=== PATIENT | female | born 1985 | race Caucasian/White ===

== ENCOUNTER 2017-03-01 09:54 | Outpatient (CLI) | payer OTHER ==
--- NOTE | 2017-03-01 11:39 | XRAY Report ---
THREE-VIEW RIGHT SHOULDER: 03/01/2017 CLINICAL INDICATION: Pain. FINDINGS: Internal and external rotational views and a scapular Y view of the shoulder demonstrate n o evidence of fracture or dislocation. The joint spaces are preserved. No radiopaque foreign body i s seen in the soft tissues. IMPRESSION: NORMAL RIGHT SHOULDER. JOB #: [id number] EXT JOB #:[id number]
== END 2017-03-01 09:55 | disposition home or self-care (01) ==
LOC: DI 09:54
PROVIDERS: ATTEND Nurse Practitioner Family
DX: M25.511 Pain in right shoulder (principal)

== ENCOUNTER 2018-08-30 11:33 | Outpatient (CLI) | payer OTHER ==
--- NOTE | 2018-08-30 15:13 | XRAY Report ---
Reason: MULTIPLE JOINT PAIN Procedure Date: 08/30/2018 Accession Number: [id number] / [id number] Procedure: XR - Hand 3 View BILAT CPT Code: FULL RESULT: EXAMS: 1. RIGHT HAND RADIOGRAPHY 2. LEFT HAND RADIOGRAPHY EXAM DATE: 08/30/2018 11:45 AM. CLINICAL HISTORY: Multiple joint pain. Positive rheumatologic markers. COMPARISON: None. TECHNIQUE: 3 views each hand. FINDINGS: Right: Bones: Normal bone density. No fractures, bone lesions or periarticular erosions. Joints: Normal. No subluxations. Soft Tissues: Normal. No soft tissue swelling. Left: Bones: Normal bone density. No fractures, bone lesions or periarticular erosions. Joints: Normal. No subluxations. Soft Tissues: Normal. No soft tissue swelling. IMPRESSION: Normal bilateral hand radiography. No radiographic evidence of productive or erosive arthropathy. RADIA
== END 2018-08-30 11:34 | disposition home or self-care (01) ==
LOC: DI 11:33
PROVIDERS: ATTEND Family Medicine
DX: M25.50 Pain in unspecified joint (principal)

== ENCOUNTER 2021-02-01 02:26 | Emergency (ER) | payer OTHER ==
[2021-02-01 02:48] LABS: BILIRUBIN,URINE NEGATIVE (NEGATIVE); CLARITY,URINE SL. CLOUDY (CLEAR); GLUCOSE, URINE (UA) NEGATIVE (NEGATIVE); HCG UR QUAL NEGATIVE; KETONES,URINE (UA) NEGATIVE (NEGATIVE); LEUKOCYTE ESTERASE, URINE SMALL (NEGATIVE); NITRITE,URINE POSITIVE (NEGATIVE); OCCULT BLOOD,URINE LARGE (NEGATIVE); PH,URINE 5.5 PH (5.0-7.5); PROTEIN,URINE 100 mg/dL (NEGATIVE); UROBILINOGEN,URINE 0.2 (NORMAL) E.U./dL (NORMAL)
[2021-02-01 02:49] LABS: BACTERIA,URINE Few /HPF (None Seen); SQUAMOUS EPITHELIAL CELL,UR RARE Squamous (<= Few)
[2021-02-01 02:51] LABS: BASOPHILS # (AUTO) 0.1 10^3/uL (0.0-0.1); BASOPHILS % (AUTO) 0.7 %; EOSINOPHILS # (AUTO) 0.3 10^3/uL (0.0-0.7); EOSINOPHILS % (AUTO) 3.1 %; HCT - HEMATOCRIT 41.4 % (37.0-47.0); HGB - HEMOGLOBIN 13.4 g/dL (12.0-16.0); LYMPHOCYTES # (AUTO) 1.8 10^3/uL (1.5-3.5); MEAN CORPUSCULAR HEMOGLOBIN 28.2 pg (27.0-31.0); MEAN CORPUSCULAR HGB CONC 32.4 g/dL (32.0-36.0); MEAN CORPUSCULAR VOLUME 87.2 fL (81.0-99.0); MEAN PLATELET VOLUME 10.1 fL (7.9-10.8); MONOCYTES # (AUTO) 0.7 10^3/uL (0.0-1.0); MONOCYTES % (AUTO) 7.9 %; NEUTROPHILS # (AUTO) 6.2 10^3/uL (1.5-6.6); NEUTROPHILS % (AUTO) 68.1 %; PLT - PLATELET COUNT 298 10^3/uL (130-450); RED BLOOD COUNT 4.75 10^6/uL (4.20-5.40); RED CELL DISTRIBUTION WIDTH 13.4 % (12.0-15.0); WHITE BLOOD COUNT 9.1 x10^3/uL (4.8-10.8)
[2021-02-01 03:04] LABS: ALBUMIN 4.5 g/dL (3.2-5.5); ALBUMIN/GLOBULIN RATIO 1.4 (1.0-2.2); BILIRUBIN,TOTAL 0.6 mg/dL (0.2-1.0); CALCIUM 8.8 mg/dL (8.5-10.3); CREATININE 0.8 mg/dL (0.4-1.0); POTASSIUM 3.3 mmol/L (3.5-5.0); TOTAL PROTEIN 7.8 g/dL (6.7-8.2)
--- NOTE | 2021-02-01 03:04 | ED Physician Documentation ---
PD HPI ABD PAIN - Stated complaint Stated Complaint: R SIDE PX - Chief complaint Chief Complaint: Abd Pain - History obtained from History obtained from: Patient - History of Present Illness Timing - onset: How many hours ago (2-3 hours ago) Timing - details: Abrupt onset, Waxing and waning Pain level now: 6 Quality: Pain Location: Other (right flank) Improved by: Other (no ameliorating factors) Worsened by: Other (no exacerbating factors) Associated symptoms: Nausea, Vomiting. 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 Denies h/o similar symptoms. Review of Systems Constitutional: reports: Reviewed and negative Cardiac: reports: Reviewed and negative Respiratory: reports: Reviewed and negative GI: reports: Abdominal Pain (right flank pain, some mild component of RUQ and right paralumbar discomfort, as well), Nausea, Vomiting. 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 - Present Medications Home Medications: Ambulatory Orders Medication Instructions Recorded Confirmed Ciprofloxacin HCl [Cipro] 500 mg PO BID #14 tablet 02/01/21 HYDROcod/ACETAM 5/325 [[place] 5/325] 1 - 2 tablet PO Q6H PRN #14 tablet 02/01/21 Ondansetron Odt [Zofran] 4 mg TL Q6H PRN #14 tablet 02/01/21 - Allergies Allergies/Adverse Reactions: Allergies Allergy/AdvReac Type Severity Reaction Status Date / Time No Known Drug Allergies Allergy Verified 02/01/21 02:35 PD ED PE NORMAL - Vitals Vital signs reviewed: Yes - General General: Alert and oriented X 3, Well developed/nourished, Other (appears to be in mild/moderate painful distress) - HEENT HEENT: Moist mucous membranes - Neck Neck: Supple, no meningeal sign - Cardiac Cardiac: RRR, No murmur - Respiratory Respiratory: No respiratory distress, Clear bilaterally - Abdomen Abdomen: Soft, Non distended, Other (mild TTP RUQ without rebound or guarding) - Back Back: Other (mild right CVAT) - Derm Derm: Normal color, Warm and dry Results - Vitals Vitals: Vital Signs - 24 hr 02/01/21 02/01/21 03:32 05:23 Temperature 36.6 C Heart Rate 82 84 Respiratory 18 16 Rate Blood Pressure 134/83 H 128/90 H O2 Saturation 97 97 Oxygen O2 Source Room air - Labs Labs: Laboratory Tests 02/01/21 02/01/21 02/01/21 02:30 02:45 02:45 WBC 9.1 RBC 4.75 Hgb 13.4 Hct 41.4 MCV 87.2 MCH 28.2 MCHC 32.4 RDW 13.4 Plt Count 298 MPV 10.1 Neut # (Auto) 6.2 Lymph # (Auto) 1.8 [place] # (Auto) 0.7 Eos # (Auto) 0.3 Baso # (Auto) 0.1 Absolute Nucleated RBC 0.00 Nucleated RBC % 0.0 Sodium 141 Potassium 3.3 L Chloride 107 Carbon Dioxide 24 Anion Gap 10.0 BUN 15 Creatinine 0.8 Estimated GFR (MDRD) 82 L Glucose 114 H Calcium 8.8 Total Bilirubin 0.6 AST 17 ALT 15 Alkaline Phosphatase 88 Total Protein 7.8 Albumin 4.5 Globulin 3.3 Albumin/Globulin Ratio 1.4 Lipase 30 Urine Color YELLOW Urine Clarity SL. CLOUDY Urine pH 5.5 Ur Specific [place] >=1.030 H Urine Protein 100 H Urine Glucose (UA) NEGATIVE Urine Ketones NEGATIVE Urine Occult Blood LARGE H Urine Nitrite POSITIVE H Urine Bilirubin NEGATIVE Urine Urobilinogen 0.2 (NORMAL) Ur Leukocyte Esterase SMALL H Urine RBC 6-10 H Urine WBC 11-25 H Ur Squamous Epith Cells RARE Squamous Urine Bacteria Few Ur Microscopic Review INDICATED Urine Culture Comments INDICATED Urine HCG, Qual NEGATIVE - Rads (name of study) CT A/P with IV contrast Radiology: Prelim report reviewed, See rad report PD MEDICAL DECISION MAKING - ED course Complexity details: reviewed results, re-evaluated patient, considered differential, d/w patient ED course: UA s/o UTI and CT A/P suggests mild focal inflammation right urinary collecting system, possibly representing pyelitis. She is afebrile and her blood test results are reassuring. Her pain is well controlled with toradol IV and 0.5mg IV dilaudid. She is given rocephin IV prior to d/c and rx for cipro, zofran, and cipro are transmitted to her pharmacy I am prescribing a short course of short-acting opioid pain medication for this patient. I have reviewed the patients HOUSING LIAISON and no concerning findings were noted. I have discussed that the opioids are for short term therapy only, and will not be refilled from the ED. Departure - Departure Disposition: 01 Home, Self Care Clinical Impression: Acute pyelitis Condition: Good Instructions: ED Kidney Infec Female Follow-Up: Kike Foster MD [Primary Care Provider] - (3-5 days if symptoms not improving) Prescriptions: Ciprofloxacin HCl [Cipro] 500 mg PO BID #14 tablet HYDROcod/ACETAM 5/325 [[place] 5/325] 1 - 2 tablet PO Q6H PRN #14 tablet PRN Reason: Pain Ondansetron Odt [Zofran] 4 mg TL Q6H PRN #14 tablet PRN Reason: Nausea / Vomiting Comments: Prescriptions for hydrocodone/acetaminophen (pain medication), cipro (antib iotic), and zofran (antinauseant) have been electronically submitted to [facility] in [place] I am prescribing a short course of narcotic pain medication for you. These are potentially dangerous and addictive medications that should be used carefully. These medications may constipate you. Take an ydla-krm-saycedq stool softener (docusate) twice daily with plenty of water while taking these medications. If you go 24 hours without a bowel movement, take [id number] miralax, per package instructions. Do not drink or drive while taking these medications. If you received narcotic or sedating medications while in the emergency department, do not drive for 24 hours. Store this medication in a safe, secure place and out of reach of children. It is a violation of federal law to give or sell this medication to another person or to use in a manner other than prescribed. The ED will not refill narcotic prescriptions, including prescriptions lost or stolen. To dispose of unwanted medications: 1. [facility] at [address] in [place] has a medication drop box. They accept prescription medications (in pill form) Tuesday through Tuesday 9:00 a.m. to 5:00 p.m. 2. [facility] accepts prescription medications (in pill form only) for disposal year round. Call for more information. 3. Contact the [facility] for the next [facility] sponsored prescription drug collection event. , [phone], or [phone]; Discharge Date/Time: 02/01/21 05:47
[2021-02-01] MEDS ORDERED: HYDROmorphone 1 MG/ML CARPUJECT IVP STA (03:21)
[2021-02-01] MEDS ORDERED: SODIUM CHLORIDE 0.9% 1,000 ML IV STA (03:21)
[2021-02-01] MEDS ORDERED: ONDANSETRON 4 MG/2 ML VIAL IVP STA (03:21)
[2021-02-01] MEDS ORDERED: KETOROLAC 30 MG/ML VIAL IVP STA (03:22)
[2021-02-01] MEDS ORDERED: IOPAMIDOL-300 100 ML VIAL ONE (03:30)
[2021-02-01] MEDS ORDERED: IOPAMIDOL-300 100 ML VIAL IVP ONE (04:05)
[2021-02-01] MEDS ORDERED: cefTRIAXone 1 GM VIAL IVP STA (05:11)
[2021-02-01 05:23] VITALS: BP 128/90
--- NOTE | 2021-02-01 07:58 | CT Report ---
PROCEDURE: Abdomen/Pelvis W INDICATIONS: right flank pain CONTRAST: IV CONTRAST: Isovue 300 ml: 100 PO CONTRAST: *NO PO CONTRAST TECHNIQUE: After the administration of IV contrast, 5 mm thick sections acquired from the diaphragms to the symp hysis. 5 mm thick coronal and sagittal reformats were acquired. For radiation dose reduction, the f ollowing was used: automated exposure control, adjustment of mA and/or kV according to patient size. COMPARISON: None. FINDINGS: Image quality: Excellent. ABDOMEN: Lung bases: Lung bases are clear. Heart size is normal. A small hiatal hernia is incidentally note d. Solid organs: Liver and spleen are normal in size and enhancement. Gallbladder wall does not appear thickened. Biliary system is non dilated. Pancreas enhances normally. No adrenal nodules. Mild right-sided hydronephrosis is seen. Hyperenhancement can be seen of the wall of the right renal pelvis, with mild surrounding inflammatory change. The kidneys enhance symmetrically and demonstrate normal size. No left-sided hydronephrosis. Peritoneum and bowel: Bowel loops demonstrate normal wall thickness and caliber. No free fluid or a ir. No appendix can be seen, either normal or abnormal. No focal right lower quadrant inflammatory c hanges are seen. Nodes and vessels: No retroperitoneal or mesenteric adenopathy by size criteria. Aorta and inferior vena cava are normal in size. Miscellaneous: No ventral hernias. PELVIS: Genitourinary: Bladder wall thickness is normal. An IUD is seen at the expected location. A 3 cm li barbara physiologic right ovarian cyst can be seen. Miscellaneous: No inguinal hernias or adenopathy. Bones: No suspicious bony lesions. No vertebral body compression fractures. IMPRESSION: Mild right-sided hydronephrosis is seen, with inflammatory change of the right renal pelvis. Given th e right flank pain, this is attributed to colitis. Please correlate with urinalysis. Incidental note is made of: Small hiatal hernia IUD Physiologic appearing right ovarian cyst Note: No significant discrepancy from the preliminary report. Reviewed by: Zurdo Crawley MD on 02/01/2021 6:57 AM [place] Approved by: Zurdo Crawley MD on 02/01/2021 6:57 AM [place] Station ID: [id number]
== END 2021-02-01 05:47 | disposition home or self-care (01) ==
LOC: ED 02:26
DX: N10 Acute pyelonephritis (principal); Z97.5 Presence of (intrauterine) contraceptive device
CPT/HCPCS: 36415; 74177; 80053; 81001; 81025; 83690; 85025; 87086; 87181; 96361; 96374; 96375; 99284; J1170; Q9967; 81003

== ENCOUNTER 2021-07-01 17:14 | Outpatient (CLI) | payer OTHER ==
--- NOTE | 2021-07-01 18:00 | XRAY Report ---
PROCEDURE: Cervical Spine 2 View INDICATIONS: MYOFASCIAL PAIN SYNDROME OF NECK TECHNIQUE: 3 view(s) of the cervical spine were acquired. COMPARISON: None. FINDINGS: Bones: No fractures or dislocations to the C7-T1 level. There is straightening and mild reversal of normal cervical lordosis. Degenerative endplate changes at C4-5 through C6-7 levels are seen. The lat eral masses of C1 appear intact on the odontoid view. No suspicious bony lesions. Soft tissues: No prevertebral soft tissue swelling. IMPRESSION: No acute cervical spine fracture or dislocation. Degenerative disc disease in mid to low er cervical spine as above. Reviewed by: Josef Martínez MD on 07/01/2021 5:59 PM PST Approved by: Josef Martínez MD on 07/01/2021 5:59 PM PST Station ID: [id number]
== END 2021-07-01 17:15 | disposition home or self-care (01) ==
LOC: DI.S 17:14
PROVIDERS: ATTEND Family Medicine
DX: M50.321 Other cervical disc degeneration at C4-C5 level (principal)